=== PATIENT | female | born 1945 | race Caucasian/White ===

== ENCOUNTER 2023-12-13 06:16 | Observation (INO) ==
[~2023-12-13 06:16] MED LIST: NS 0.45% 1000 ml BAG 1,000 ML IV SCH; Naloxone 0.4 mg VIAL 0.4 mg/ml 1 ml VIAL IV PRN; Ondansetron 4 mg VIAL 2 MG/ML 2 ml VIAL IV PRN; Tranexamic Acid 1 GM/100ML BAG 2,000 MG/200 ML BAG IV ONE; ceFAZolin 2 GM in NS PREMIX 2 GM/100 ML BAG IVPB ONE; fentaNYL 100 mcg/2 ml 50 MCG/ML VIAL IV PRN
[2023-12-13] MEDS ORDERED: Lidocaine 2% PF 5 ML VIAL ONE (06:26)
[2023-12-13] MEDS ORDERED: fentaNYL 250 mcg/5 ml 50 MCG/ML 5 ml VIAL (250 MCG) ONE (06:27)
[2023-12-13] MEDS ORDERED: Midazolam 2 mg/2 ml VIAL 1 mg/ml 2 ml VIAL (2 mg) ONE (06:27)
[2023-12-13] MEDS: Lactated Ringers 1000 ml BAG 1,000 ML IV SCH ×2 (06:32→11:00)
[2023-12-13 06:37] LABS: Rapid COVID-19 Molecular Undetected (Undetected)
[2023-12-13] MEDS ORDERED: ROPIVACAINE 5 MG/ML 30 ML BTL (0.5%) ONE (07:12)
[2023-12-13] MEDS ORDERED: Ondansetron 4 mg VIAL 2 MG/ML 2 ml VIAL ONE (07:43)
[2023-12-13] MEDS ORDERED: Dexamethasone IV 4 MG/ML VIAL 1 ml VIAL ONE (07:43)
[2023-12-13] MEDS ORDERED: Glycopyrrolate IV 0.2 MG/ML 1 ML VIAL ONE (07:43)
[2023-12-13] MEDS ORDERED: Ondansetron ODT 4 mg TAB 4 MG TAB PO PRN (07:45)
[2023-12-13] MEDS ORDERED: Ondansetron 4 mg VIAL 2 MG/ML 2 ml VIAL IV PRN (07:45)
[2023-12-13] MEDS ORDERED: Magnesium Hydroxide LIQ 30 ML UDC PO PRN (07:45)
[2023-12-13] MEDS ORDERED: Lactulose 30 ml UDC PO PRN (07:45)
[2023-12-13] MEDS ORDERED: Morphine 2 MG/ML SYRINGE IV PRN (07:45)
[2023-12-13] MEDS ORDERED: Calcium Carb (TUMS) 500 mg CHEW TAB PO PRN (07:45)
[2023-12-13] MEDS ORDERED: Phenylephrine IV 10 MG/ML 1 ml VIAL ONE (07:50)
[2023-12-13] MEDS ORDERED: Propofol 10 MG/ML 20 ML BTL ONE ×2 (08:09→09:10)
[2023-12-13] MEDS: Magnesium Hydroxide LIQ 30 ML UDC PO SCH (12:44)
[2023-12-13] MEDS: Vitamin THERAPEUTIC TAB PO SCH (12:44)
[2023-12-13] MEDS: ceFAZolin 2 GM in NS PREMIX 2 GM/100 ML BAG IVPB SCH (16:23)
[2023-12-13] MEDS: Acetaminophen IV 1 GM/100ML 1,000 MG/100 ML BAG IV ONE (23:11)
[2023-12-13] MEDS: Buffered Lidocaine 1% SYRIN 1 ml INTRADERM ONE (23:11)
[2023-12-14] MEDS: Latanoprost 0.005% 2.5 ml BTL BOTH EYES SCH (08:03)
[2023-12-14 08:34] LABS: Hematocrit 25.9 % (35-45); Hemoglobin 8.8 g/dL (11.5-14.3); Mean Platelet Volume 8.5 fL (7.5-11.2); Platelet Count 177 10^3/uL (150-450)
[2023-12-14 08:56] LABS: Calcium 8.6 mg/dL (8.6-10.3); Creatinine, Serum 0.64 mg/dL (0.51-0.95); Potassium 4.1 mmol/L (3.5-5.0); eGFR CKD-EPI 91.5 (>60)
== END 2023-12-14 12:15 | disposition home or self-care (01) ==
LOC: SSU 06:16 → OR 06:16 → EDSTATUS 07:30
PROVIDERS: ADMIT Orthopaedic Surgery Adult Reconstructive Orthopaedic Surgery; ATTEND Orthopaedic Surgery Adult Reconstructive Orthopaedic Surgery